=== PATIENT | female | born 1950 | race Caucasian/White ===

== ENCOUNTER → 2018-03-11 | Outpatient (CLI) | payer MEDICARE | END | disposition home or self-care (01) | LOC: PCVCCLINIC 13:25 | PROVIDERS: ATTEND Internal Medicine Cardiovascular Disease | DX: R07.9 Chest pain, unspecified (principal); R06.02 Shortness of breath; R53.83 Other fatigue; E11.9 Type 2 diabetes mellitus without complications; E78.00 Pure hypercholesterolemia, unspecified; G47.33 Obstructive sleep apnea (adult) (pediatric); Z79.4 Long term (current) use of insulin; Z79.82 Long term (current) use of aspirin; Z88.8 Allergy status to other drugs, medicaments and biological substances | CPT/HCPCS: 80061; 93005; G0463 ==

== ENCOUNTER → 2018-03-18 | Outpatient (CLI) | payer MEDICARE ==
[~2018-03-18] MED LIST: REGADENOSON 0.4 MG/5 ML DISP.SYRIN. IV ONE
--- NOTE | 2018-03-18 13:58 | PCVCIMAG ---
APPROVED REPORT Study performed: 03/18/2018 07:40:13 EXAM: Comprehensive 2D, Doppler, and color-flow Echocardiogram Patient Location: Echo lab Status: routine BSA: 1.87 HR: 68 bpmBP: 126/86 mmHg Rhythm: NSR Other Information Study Quality: Adequate Indications Diabetes Dyspnea Chest Pain 2D Dimensions LVEF(%): 27.18 (>50%) IVSd: 11.29 (7-11mm) LVDd: 41.62 mm PWd: 11.29 (7-11mm)Ascending Ao: 26.23 (22-36mm) LVDs: 36.43 (25-40mm) Left Atrium: 32.64 (27-40mm) Aortic Root: 26.42 mm LV Single Plane 4CH: 52.63 % LV Single Plane 2CH: 50.08 %Joya's LVEF: 51.35 % Biplane EF: 52.8 % Volumes Left Atrial Volume (Systole) Single Plane 4CH: 39.02 mLSingle Plane 2CH: 42.59 mL LA ESV Index: 2.00 mL/m2 Aortic Valve AoV Peak Derrick.: 1.42 m/s AO Peak Gr.: 8.04 mmHgLVOT Max P.41 mmHg LVOT Max V: 0.92 m/s AI Vmax: 3.57 m/s AI Union: 2.56 m/s2 AI PHT: 403.70 ms Mitral Valve E/A Ratio: 0.7 MV Decel. Time: 352.02 ms MV E Max Derrick.: 0.48 m/s MV A Derrick.: 0.69 m/s IVRT: 124.57 ms Pulmonary Valve PV Peak Derrick.: 0.92 m/sPV Peak Gr.: 3.37 mmHg Pulmonary Vein P Vein S: 0.26 m/sP Vein A: 0.26 m/s P Vein D: 0.36 m/sP Vein A Dur.: 148.8 msec P Vein S/D Ratio: 0.72 Tricuspid Valve TR Peak Derrick.: 2.72 m/s TR Peak Gr.: 29.59 mmHg TV Vmax: 0.46 m/s Left Ventricle The left ventricle is normal size. There is normal LV segmental wall motion. There is normal left ventricular wall thickness. Left ventricular systolic function is normal. The left ventricular ejection fraction is within the normal range. LVEF is 50-55%. Grade I - abnormal relaxation pattern. Right Ventricle The right ventricle is normal size. The right ventricular systolic function is normal. Atria The left atrium size is normal. The right atrium size is normal. Aortic Valve The aortic valve is normal in structure. Mild aortic regurgitation. There is no aortic valvular stenosis. Mitral Valve The mitral valve is normal in structure. Trace mitral regurgitation. No evidence of mitral valve stenosis. Tricuspid Valve The tricuspid valve is normal in structure. Mild tricuspid regurgitation with PAP of 37 mmHg. Pulmonic Valve The pulmonary valve is normal in structure. Trace pulmonic regurgitation. Great Vessels The aortic root is normal in size. IVC is normal in size and collapses with >50% inspiration Pericardium There is no pericardial effusion. There is no pleural effusion. <Conclusion> The left ventricle is normal size. LVEF is 50-55%. Grade I - abnormal relaxation pattern. The right ventricle is normal size. The left atrium size is normal. Mild aortic regurgitation. There is no aortic valvular stenosis. Trace mitral regurgitation. Mild tricuspid regurgitation with PAP of 37 mmHg. The aortic root is normal in size. There is no pericardial effusion.
--- NOTE | 2018-03-19 12:46 | PCVCIMAG ---
APPROVED REPORT Imaging Protocol: Rest Tc-99m/Stress Tc-99m 1 day Study performed: 03/18/2018 09:02:28 Indication: Chest pain, Dyspnea, Fatigue Patient Location: Out-Patient Stress Nurse: Gita Pruitt RN, Anabel Hampton RN LA Tech:TAI HeadleyMT Ht: 5 ft 2 in Wt: 189 lbs BSA: 1.87 m2 HR: 73 bpm BP: 136/80 mmHg BMI: 34.5 Rhythm: NSR Medical History Medications: ASPIRIN ,METFORMIN ,ATORVASTATIN, LOSARTAN Allergies: Citalopram, Oxybutinin Cardiac Risk Factors: Age, Hyperlipidemia, Diabetes (non-insulin), AV Pretest Chest Pain Characteristics: No chest pain Exercise History: Physically active Resting Data Rest SPECT myocardial perfusion imaging was performed in supine position 45 minutes following the intravenous injection of 11.3 mCi of Tc-99m Sestamibi. Time of rest injection: 0845 Date: 03/18/2018 Administration Route: IV Administration Site: Left AC Pharmacologic Stress Pharmacologic stress test was performed by injecting Regadenoson 0.4 mg IV push over 10-15 seconds immediately followed by the intravenous injection of 35.1 mCi of Tc-99m Sestamibi. Time of stress injection: 1020 Date: 03/18/2018 Administration Route: IV Administration Site: Left AC Gated Stress SPECT was performed 45 minutes after stress injection. The images were gated to evaluate regional wall motion and calculate left ventricular ejection fraction. Stress Test Details Stress Test: Pharmacologic stress was paired with low level exercise. Reason for pharmacologic stress test: physical limitation. HRMax Heart Rate (APMHR): 152 bpm Resting HR: 73 bpmTarget HR (85% APMHR): 129 bpm Max HR Achieved: 133 bpm % of APMHR: 87 Recovery HR: 92 bpm BP Resting BP: 136/80 mmHg Recovery BP: 134/62 mmHg ECG Resting ECG: Sinus Rhythm Stress ECG: Sinus Tachycardia Arrhythmia: None Recovery ECG: Sinus Rhythm Clinical Reason for Termination: Completed protocol Stress Symptoms: Dyspnea, Nausea, Emesis, Headache, Leg Fatigue, Lightheaded Exercise duration: 2 min 00 sec Symptoms resolved with caffeine. Nurse Comments Pt only walked for 2min then had to sit due to nausea. Stress ECG Conclusion ECG: Non-ischemic Study Quality Study: Good Study Data Post stress, the left ventricular ejection was 68%.. SSS: 0 SRS: 4 SDS: 0 TID = 1.21. Perfusion No evidence of stress induced ischemia or prior myocardial infarction. Wall Motion Normal left ventricular size and function with no regional wall motion abnormalities. Nuclear Conclusion No evidence of stress induced ischemia or prior myocardial infarction. Normal left ventricular size and function with no regional wall motion abnormalities. Post stress, the left ventricular ejection was 68%. No prior study available for comparison. Interpreted by: Artur Cheng MD Electronically Approved: 03/18/2018 17:43:11 <Conclusion> ECG: Non-ischemic
== END | disposition home or self-care (01) ==
LOC: PCVCIMAG 12:54
PROVIDERS: ATTEND Internal Medicine Cardiovascular Disease
DX: I08.2 Rheumatic disorders of both aortic and tricuspid valves (principal); E11.9 Type 2 diabetes mellitus without complications; R07.9 Chest pain, unspecified; R06.09 Other forms of dyspnea; R53.83 Other fatigue; R11.10 Vomiting, unspecified; R51 Headache; R42 Dizziness and giddiness
CPT/HCPCS: 78452; 93017; 93306; A9500; J2785

== ENCOUNTER → 2018-03-31 | Outpatient (CLI) | payer MEDICARE ==
[~2018-03-31] MED LIST changes: +DIAZEPAM 10 MG TABLET. ONE; +HEPARIN 1,000 UNIT/ML VIAL for PCVC ONE; +IOHEXOL 350 MG/ML 100 ML VIAL. ONE; +IOHEXOL 350 MG/ML 50 ML VIAL. ONE; +IV NORMAL SALINE 1000ML BAG 1,000 ML ONE; +IV NORMAL SALINE 500ML BAG 1,000 ML ONE; +LIDOCAINE 1% PF 30 ML VIAL. ONE; +MIDAZOLAM HCL/PF 2 MG/2 ML VIAL. ONE; -REGADENOSON 0.4 MG/5 ML DISP.SYRIN. IV ONE; +diazePAM 5 MG TABLET ONE; +fentaNYL PF VIAL 100 MCG/2 ML VIAL ONE
--- NOTE | 2018-03-31 18:15 | PCVCINTER ---
APPROVED REPORT Study performed: 03/31/2018 12:47:47 Patient Details Patient Status: Out-Patient Room #: 3 The patient is a 68 year-old Female Event Personnel Maribeth Slaughter MD, Fran Wilkerson RT(R), Tracie Castellanos RT(R)(), Ad Dodson RN Risk Factors Dysplipidemia (Type: 0)Obesity, Diabetes (Control: Oral)Last Creatanine 1.1 Previous Procedures/Diagnoses Sleep apnea, Diabetes Procedure Narrative The patient was brought electively to the Cardiac Catheterization Laboratory and was prepped and draped in a sterile manner. The right femoral was infiltrated with 1% Lidocaine subcutaneous anesthesia. A 6F sheath was inserted into the right femoral artery. Coronary angiography was performed using coronary diagnostic catheters. The right coronary system was accessed and visualized with a JR4 catheter. The left coronary system was accessed and visualized with a JL4 catheter. The left ventricle was accessed and visualized with a Straight Pigtail catheter. Left ventriculogram was performed in SOLIZ projection. Closure device was deployed with a 6 Fr Mynx. Hemostasis was obtained with manual pressure following sheath removal without any complications. The patient tolerated the procedure well and there were no complications associated with the procedure. There was no hematoma. Hemodynamics The aortic pressure is 131/59 mmHg with a mean of 88 mmHg. The left ventricular pressure is 110/4 mmHg with a mean of -3 mmHg. Conclusion #1 normal left ventricular size and systolic function EF 60% #2 abdominal aorta is intact single bilateral renal arteries iliac system patent no evidence of aneurysm #3 left main is short free of disease giving rise to LAD and circumflex #4 LAD is minimal distal disease extends to the apex a type I LAD no occlusive disease #5 and nondominant circumflex artery widely patent moderate in distribution #6 dominant right coronary artery with minimal irregularity #7 the patient had a VF arrest with a final injection of the right coronary artery. Did not respond a precordial thump. One defibrillation did restore normal sinus rhythm without any adverse sequelae. Patient is alert and oriented post procedure with no complaints Recommendations and plan continue aggressive risk factor modification. No indication for coronary intervention. Etiology of chest pain is not cardiac. No lifting for 48 hours no line tub CUVISM MAGAZINEi or Allen for a week.
== END | disposition home or self-care (01) ==
LOC: PCVCINTER 13:15
PROVIDERS: ATTEND Internal Medicine Cardiovascular Disease
DX: R94.39 Abnormal result of other cardiovascular function study (principal); E11.9 Type 2 diabetes mellitus without complications; G47.30 Sleep apnea, unspecified; Z79.84 Long term (current) use of oral hypoglycemic drugs
CPT/HCPCS: 93458; J1644; J2250; J3010; J7030; J7040; Q9967; C1751; C1760; C1769; C1894